=== PATIENT | female | born 1980 | race Caucasian/White ===

== ENCOUNTER 2017-09-15 12:14 | Emergency (ER) | END 2017-09-15 13:56 | disposition home or self-care (01) ==

== ENCOUNTER 2018-06-03 17:04 | Outpatient (CLI) | payer MEDICAID ==
[~2018-06-03] VITALS: Ht 165.1 cm; Wt 74.6 kg
[~2018-06-03 17:04] MED LIST: ACET325T33 PO; NAPR-985 PO
[2018-06-03 17:13] VITALS: BP 123/69; PULSE 78; RESP 17; Ht 165.1 cm; Wt 74.6 kg
--- NOTE | 2018-06-04 00:04 | TRIAGE ---
OB Triage Datetime Report Generated by CPN: 06/04/2018 00:04 Datetime: 06/03/2018 19:15 Stage of : OB Triage Datetime: 06/03/2018 18:50 Stage of : OB Triage Labor Evaluation Frequency: 0 Monitor Mode: External Resting Tone [place]: Relaxed Heart Rate FHR Baseline Rate: 135 Monitor Mode: External US Variability: Moderate 6-25 bpm Decelerations: None Datetime: 06/03/2018 18:00 Labor Evaluation Frequency: 0 Monitor Mode: External Resting Tone [place]: Relaxed Heart Rate FHR Baseline Rate: 140 Variability: Moderate 6-25 bpm Decelerations: None Pain Assessment Pain Scale: 5 Pain Presence: Constant Pain Type: Stabbing; Ache Pain Location: Abdomen Pain Relief Measures: Comfort Measures Pain Assessment Comments: pt stated that she has upper abdominal pain Vaginal Exam Membrane Status: Intact Datetime: 06/03/2018 17:12 Maternal Assessment Level of Consciousness: Fully Conscious DTR's/Clonus: DTRs 2+; No Clonus Headache: Denies Blurred Vision: No Respiratory Effort: Unlabored; Regular Rhythm; Equal Expansion Breath Sounds, Left: Clear and Equal Breath Sounds, Right: Clear and Equal Nausea/Vomiting: Denies RUQ Epigastric Pain: Denies Facial Edema: None Temperature Route: Axillary Fall Risk Assessment History of Falling: (0) No Secondary Diagnosis: (0) No Ambulatory Aid: (0) Bedrest/Nurse Assist IV Therapy: (0) No Gait: (0) Normal/Bedrest/Immobile Mental Status: (0) Oriented to Own Ability Fall Score: 0 Fall Risk Score Definition: No Risk: No action required Datetime: 06/03/2018 17:11 EGA: 23.2 Datetime: 06/03/2018 17:08 Comments: monitors applied Datetime: 06/03/2018 17:07 Time of Arrival: 06/03/2018 17:07 Arrived By: Ambulatory Arrived From: Home Chief Complaint: right upper quadrant, front and back since 3 days Movement: Present Contractions: Denies/Absent Rupture of Membranes: Denies Vaginal Bleeding: None Vaginal Discharge: Denies Recent Sexual Intercouse: Denies Abdominal Trauma: Not Applicable Patient Complaints: Other Time Provider Notified: 06/03/2018 20:21 Provider Notified: LAURE Initial Plan: call MD, Monitors applied, CBC, CMP, UA, abd US
--- NOTE | 2018-06-04 19:21 | PN ---
Triage Information Date/Time Reason for visit: Abd/pelvic pain Weeks of Gestation 23 weeks /Para G P Diabetes: none Hypertention: none Objective Vital Signs Date Temp Pulse Resp B/P (MAP) Pulse Ox O2 O2 Flow FiO2 Time Delivery Rate 06/03/18 98.2 78 17 123/69 97 Room Air 17:13 (87) Heart Rate: 130's Heart Rate Comments Appropriate for GA Contractions: None Results/Medications Result Diagram: 06/03/18 1837 06/03/181836 Disposition: Discharge Assessment/Plan After rest patient feels better and her abdominal pain resolved. RODRÍGUEZ KELSEY MD Jun 04, 2018 19:21
== END 2018-06-03 20:53 | disposition home or self-care (01) ==
LOC: OBT 17:04 → L-D 17:05 → OBT 20:53
PROVIDERS: ATTEND Obstetrics & Gynecology
DX: O26.892 Other specified pregnancy related conditions, second trimester (principal); R10.2 Pelvic and perineal pain; O09.512 Supervision of elderly primigravida, second trimester; Z3A.23 23 weeks gestation of pregnancy
CPT/HCPCS: 76705; 80053; 80076; 81003; 82150; 83690; 85025; Z7500; G0463